=== PATIENT | female | born 1995 | race Caucasian/White ===

== ENCOUNTER 2017-01-06 02:01 | Emergency (ER) | payer OTHER ==
[~2017-01-06] VITALS: Ht 162.6 cm; Wt 123.8 kg
--- NOTE | 2017-01-06 02:07 | NUR ---
Patient ambulated to bed 06.
[2017-01-06 02:10] VITALS: BP 111/74
--- NOTE | 2017-01-06 02:13 | NUR ---
Dr. Mahmood evaluating patient at bedside.
--- NOTE | 2017-01-06 02:19 | NUR ---
21Y/F PATIENT PRESENTS TO ED WITH C/O LT. EAR PAIN X 1 DAY . PT STATES SHE HAS FLU LIKE SYMPTOMS, THIS MORNING HAD N/V THEN LT. EAR PAIN; SKIN IS PINK/WARM/DRY; AAOX4 WITH EVEN AND STEADY GAIT; LUNGS CLEAR BL; HR EVEN AND REGULAR; PT DENIES ANY FEVER, CP, SOB, OR COUGH AT THIS TIME; PATIENT STATES PAIN OF 10/10 AT THIS TIME; VSS; PATIENT POSITIONED FOR COMFORT; HOB ELEVATED; BEDRAILS UP X2; BED DOWN. ER MD MADE AWARE OF PT STATUS.
[2017-01-06 02:30] VITALS: BP 111/74
--- NOTE | 2017-01-06 02:30 | NUR ---
Patient discharged with v/s stable. Written and verbal after care instructions given and explained. Patient alert, oriented and verbalized understanding of instructions. Ambulatory with steady gait. All questions addressed prior to discharge. ID band removed. Patient advised to follow up with PMD. Rx of AMOXICILLIN 250 MG, MOTRIN 600 MG given. Patient educated on indication of medication including possible reaction and side effects. Opportunity to ask questions provided and answered.
== END 2017-01-06 02:30 | disposition home or self-care (01) ==
LOC: MED 02:01
DX: H66.92 Otitis media, unspecified, left ear (principal); J06.9 Acute upper respiratory infection, unspecified; Z91.040 Latex allergy status; J45.909 Unspecified asthma, uncomplicated; Z91.018 Allergy to other foods

== ENCOUNTER 2017-08-24 23:27 | Emergency (ER) | payer MEDICAID, OTHER ==
[~2017-08-24] VITALS: Ht 162.6 cm; Wt 125.6 kg
[2017-08-24 23:34] VITALS: BP 137/79
[2017-08-24] MEDS ORDERED: HYDR-2912 PO (23:40)
--- NOTE | 2017-08-24 23:59 | NUR ---
PT TAKEN TO BED 8.
--- NOTE | 2017-08-25 00:05 | NUR ---
PATIENT PRESENTS TO ED WITH C/O TWIN PAIN AND SWOLLEN X2 DAYS, TOOK TYLENOL, HYDROCOTISONE CREAM, AND NEOSPORIN CREAM AT HOME, NOT WORKING, 38 WEEKS . DENIES N/V/D; SKIN IS PINK/WARM/DRY; AAOX4 WITH EVEN AND STEADY GAIT; LUNGS CLEAR BL; HR EVEN AND REGULAR; PT DENIES ANY FEVER, CP, SOB, OR COUGH AT THIS TIME; PATIENT STATES PAIN OF 5/10 AT THIS TIME; VSS; PATIENT POSITIONED FOR COMFORT; HOB ELEVATED; BEDRAILS UP X2; BED DOWN. ER MD MADE AWARE OF PT STATUS.
--- NOTE | 2017-08-25 00:23 | NUR ---
Patient being evaluated by physician at bedside.
[2017-08-25] MEDS ORDERED: LIDOCAINE/EPI 2% 1:100000 20 ML VIAL INJ ONE (00:30)
--- NOTE | 2017-08-25 00:35 | NUR ---
DR. WHITE STARTED I&D PROCEDURE AT BEDSIDE, ELVIA TATE AT BEDSIDE.
--- NOTE | 2017-08-25 00:43 | NUR ---
FEMALE CHAPERONED FOR DR. WHITE DURING PELVIC EXAM AND I&D PROCEDURE
[2017-08-25] MEDS ORDERED: NACL 0.9% 1,000 ML IV ONE (00:45)
[2017-08-25] MEDS ORDERED: cefTRIAXone 2,000 MG in DEXTROSE 5% 100 ML IV ONE (00:45)
[2017-08-25] MEDS ORDERED: KETOROLAC 30 MG/ML VIAL IVP ONE (00:45)
[2017-08-25] MEDS ORDERED: cefTRIAXone 2,000 MG VIAL ONE (01:10)
--- NOTE | 2017-08-25 02:10 | NUR ---
Patient discharged with v/s stable. Written and verbal after care instructions given and explained. Patient alert, oriented and verbalized understanding of instructions. Ambulatory with steady gait. All questions addressed prior to discharge. ID band removed. Patient advised to follow up with PMD. Rx of NAPROSYN 500 MG, KEFLEX 500 MG given. Patient educated on indication of medication including possible reaction and side effects. Opportunity to ask questions provided and answered. D/C BY DR. WHITE
[2017-08-25 02:11] VITALS: BP 120/68
== END 2017-08-25 01:18 | disposition home or self-care (01) ==
LOC: MED 23:27
DX: O23.593 Infection of other part of genital tract in pregnancy, third trimester (principal); N76.4 Abscess of vulva; R03.0 Elevated blood-pressure reading, without diagnosis of hypertension; J45.909 Unspecified asthma, uncomplicated; Z3A.28 28 weeks gestation of pregnancy; Z91.040 Latex allergy status; Z88.8 Allergy status to other drugs, medicaments and biological substances; Z79.899 Other long term (current) drug therapy
CPT/HCPCS: 56405; 96365; 96375; 99284; J0696; J1885; J2001; J7030

== ENCOUNTER 2018-11-19 10:41 | Emergency (ER) | payer MEDICAID ==
[~2018-11-19] VITALS: Ht 162.6 cm; Wt 113.4 kg
[~2018-11-19 10:41] MED LIST: HYDR-1093 PO
--- NOTE | 2018-11-19 10:50 | NUR ---
PT AMBULATED TO ER BED 06
[2018-11-19 10:57] VITALS: BP 115/77
--- NOTE | 2018-11-19 11:03 | NUR ---
Note undone in EDM - 11/19/18 at 1107 by MEDFL 22 MONTH/ F BIB MOTHER C/O N/V/D X 2 DAYS. PT SKIN IS INTACT, PINK/WARM/DRY; AAO, APPROPRIATE FOR AGE, PERRL; LUNGS CLEAR BL, BREATHING UNLABORED; HR EVEN AND REGULAR, BL PERIPHERAL PULSES PRESENT; BS ACTIVE X4, NO TENDERNESS TO PALPATION, PARENT DENIES ANY FEVER, CP, SOB, OR COUGH AT THIS TIME; 0/10 PAIN AT THIS TIME; VSS; PATIENT POSITIONED FOR COMFORT; HOB ELEVATED; BEDRAILS UP X1; BED DOWN. HX--GERD, IBS, BIPOLAR, MAJOR DEPRESSION, ASTHMA RX---LAMICTAL, WELBUTRIN, ALBUTEROL
--- NOTE | 2018-11-19 11:03 | NUR ---
22 Y/ F BIB MOTHER C/O N/V/D X 2 DAYS. PT SKIN IS INTACT, PINK/WARM/DRY; AAOX4, PERRL, WITH EVEN AND STEADY GAIT; LUNGS CLEAR BL, BREATHING UNLABORED; HR EVEN AND REGULAR, BL PERIPHERAL PULSES PRESENT; BS ACTIVE X4, NO TENDERNESS TO PALPATION, NO HEPATOSPLENOMEGALLY PALPATED, RESONANT TO PERCUSSION; PT DENIES ANY FEVER, CP, SOB, OR COUGH AT THIS TIME; PT STATES 0/10 PAIN AT THIS TIME; VSS; PATIENT POSITIONED FOR COMFORT; HOB ELEVATED; BEDRAILS UP X1; BED DOWN. HX; GERD, IBS, BIPOLAR, MAJOR DEPRESSION, ASTHMA RX; LAMICTAL, WELBUTRIN, ALBUTEROL
[2018-11-19] MEDS ORDERED: FAMOTIDINE 20 MG TAB PO ONE (11:30)
[2018-11-19] MEDS ORDERED: ONDANSETRON 4 MG ODT PO ONE (11:30)
[2018-11-19] MEDS ORDERED: METOCLOPRAMIDE 10 MG TAB PO ONE (11:30)
--- NOTE | 2018-11-19 11:30 | NUR ---
Patient being evaluated by physician at bedside.
[2018-11-19] MEDS ORDERED: LORazepam 2 MG/ML VIAL IM ONE (12:20)
--- NOTE | 2018-11-19 13:02 | NUR ---
Patient discharged with v/s stable. Written and verbal after care instructions given and explained. Patient alert, oriented and verbalized understanding of instructions. Ambulatory with steady gait. All questions addressed prior to discharge. ID band removed. Patient advised to follow up with PMD. Rx of reglan/bentyl given. Patient educated on indication of medication including possible reaction and side effects. Opportunity to ask questions provided and answered.
[2018-11-19 13:07] VITALS: BP 137/92
== END 2018-11-19 13:06 | disposition home or self-care (01) ==
LOC: MED 10:41
DX: E66.01 Morbid (severe) obesity due to excess calories (principal); Z68.41 Body mass index [BMI] 40.0-44.9, adult; R11.2 Nausea with vomiting, unspecified; K21.9 Gastro-esophageal reflux disease without esophagitis; J45.909 Unspecified asthma, uncomplicated; F31.9 Bipolar disorder, unspecified; Z88.6 Allergy status to analgesic agent; Z91.040 Latex allergy status; Z79.899 Other long term (current) drug therapy
CPT/HCPCS: 96372; 99284; J2060; J8597; Q0162

== ENCOUNTER 2018-12-29 13:56 | Emergency (ER) | payer MEDICAID ==
[~2018-12-29] VITALS: Ht 162.6 cm; Wt 124.7 kg
[2018-12-29 14:03] VITALS: BP 119/74
--- NOTE | 2018-12-29 14:05 | NUR ---
PT IS A 23 Y/O FEMALE WHO PRESENTS TO THE ED C/O L EAR PAIN. PT STATES THAT IT STARTED YESTERDAY. PT REPORTS 8/10 ACHING L EAR PAIN THAT RADIATES TO THE NECK. PT DENIES CP, SOB, N/V/D. PT AWAKE AND ALERT, RR EVEN/UNLABORED. PT REPOSITIONED FOR COMFORT, BED IN LOWEST POSITION. ER MD DR. AUGUSTIN NOTIFIED. WILL CONTINUE TO MONITOR. HX--BIPOLAR, DEPRESSION, GERD, ASTHMA, IBS RX---WELLBUTRIN, LAMICTAL, LITHIUM, ALBUTEROL, PEPCID
--- NOTE | 2018-12-29 14:09 | NUR ---
Patient being evaluated by physician at bedside.
[2018-12-29] MEDS ORDERED: CLINDAMYCIN 600 MG/4 ML VIAL IM ONE (14:15)
[2018-12-29] MEDS ORDERED: DEXAMETHASONE 10 MG/ML VIAL IM ONE (14:15)
--- NOTE | 2018-12-29 15:15 | NUR ---
PT MOVED FROM BED 7 TO RU
[2018-12-29 15:48] VITALS: BP 119/74
--- NOTE | 2018-12-29 15:48 | NUR ---
Patient discharged with v/s stable. Written and verbal after care instructions given and explained. Patient alert, oriented and verbalized understanding of instructions. Ambulatory with steady gait. All questions addressed prior to discharge. ID band removed. Patient advised to follow up with PMD. Rx of ANTIVERT given. Patient educated on indication of medication including possible reaction and side effects. Opportunity to ask questions provided and answered.
== END 2018-12-29 15:48 | disposition home or self-care (01) ==
LOC: MED 13:56
DX: H66.92 Otitis media, unspecified, left ear (principal); J45.909 Unspecified asthma, uncomplicated; K21.9 Gastro-esophageal reflux disease without esophagitis; Z91.040 Latex allergy status; Z88.8 Allergy status to other drugs, medicaments and biological substances; Z79.899 Other long term (current) drug therapy
CPT/HCPCS: 36415; 87804; 96372; 99283; J1100; J3490

== ENCOUNTER 2020-02-04 18:29 | Emergency (ER) | payer OTHER ==
[~2020-02-04] VITALS: Ht 162.6 cm; Wt 126.1 kg
[2020-02-04 18:46] VITALS: BP 145/97
--- NOTE | 2020-02-04 19:16 | NUR ---
24 YO FEMALE CO GENERAL COLD SYMPTOMS AND STOMACH PAIN. PT HAS LOOSE STOOL BUT DENIES ANY N/V. RUNNY NOSE AND COUGH OFF AND ON FOR 1M. PT IS TAKING WELBUTRIN AND LATUDA.
--- NOTE | 2020-02-04 20:17 | NUR ---
PT SITTING IN BED. NO CHANGE IN CODITION
--- NOTE | 2020-02-04 21:46 | NUR ---
FLU NEG FOR A & B
[2020-02-04 21:53] VITALS: BP 131/86
--- NOTE | 2020-02-04 21:53 | NUR ---
Patient discharged with v/s stable. Written and verbal after care instructions given and explained. Patient alert, oriented and verbalized understanding of instructions. Ambulatory with steady gait. All questions addressed prior to discharge. ID band removed. Patient advised to follow up with PMD. Rx of Codeine and Tessalon Perles given. Patient educated on indication of medication including possible reaction and side effects. Opportunity to ask questions provided and answered.
== END 2020-02-04 21:53 | disposition home or self-care (01) ==
LOC: MED 18:29
DX: B34.9 Viral infection, unspecified (principal); R19.7 Diarrhea, unspecified; J45.909 Unspecified asthma, uncomplicated; K21.9 Gastro-esophageal reflux disease without esophagitis; F32.9 Major depressive disorder, single episode, unspecified; Z98.890 Other specified postprocedural states; Z79.899 Other long term (current) drug therapy; Z88.8 Allergy status to other drugs, medicaments and biological substances; Z91.040 Latex allergy status
CPT/HCPCS: 71045; 87804; 99284

== ENCOUNTER 2021-03-17 18:23 | Emergency (ER) | payer OTHER ==
[~2021-03-17] VITALS: Ht 162.6 cm; Wt 127.0 kg
[2021-03-17 18:27] VITALS: BP 142/82
--- NOTE | 2021-03-17 18:49 | NUR ---
PT AMBULATED TO RESTROOM TO PROVIDE URINE SAMPLE WITH EVEN STEADY GAIT
--- NOTE | 2021-03-17 18:58 | NUR ---
DR VIEYRA AT BEDSIDE EVALUATING PT
--- NOTE | 2021-03-17 19:15 | NUR ---
DR NICE ADV THAT PT WILL BE PLACED ON 5150 HOLD
--- NOTE | 2021-03-17 19:20 | NUR ---
PT PLACED ON A 5150 HOLD ON 03/17/21 AT 1920 FOR DANGER TO SELF.
--- NOTE | 2021-03-17 19:30 | NUR ---
PT CAME IN A WI TO THE ED FOR SUCIDAL THOUGHTS AND IDEATION. PT IS CALM, COOPERATIVE, AND RELAXED. PT ADMITS TO PREVIOUS SUICIDAL THOUGHTS THAT WERE WELL PLANNED. PT HAS THOUGHTS ABOUT KILLING HERSELF BY OD ON PILLS AND CUTTING HER WRIST. PT HAS BEEN HAVING SOME HARD TIMES IN LIFE D/T HAVING HER [employer] INSURANCE REVOKED SINCE LAST YEAR. PT SAYS SINCE HER INSURANCES WAS REVOKED SHE HASNT BEEN ABLE TO GET PROPER TREATMENT SUCH GETTING REFILLS ON HER MEDS AND SEEING A THERAPIST. PT DOES HAVE A STRONG SUPPORT SYSTEM TO HELP HER COPE WITH HER DEPRESSION AND SUICIDE. NO OBVIOUS INJURIES NOTED. PT IS A&OX4. HAS A STEADY GAIT. PTS RX IS WELLBUTRIN, LATUDA, AND ZOLOFT. BELONGING LISTS COMPLETES AND REMOVED FROM ROOM AND TAKEN BY SECURITY. BED LOCKED IN PLACE AND AT THE LOWEST POSITION. ALL SHARPS AND ITEMS ARE REMOVED FROM THE ROOM FOR PTS SAFETY. ALLERIGES: BENADRYL, LATEX. PMH: ASTHMA, IBS, GERD, ARTHRITIS, DEPRESSION, MDD, BIPOLAR, HALLUCINATION, PHYCHOSIS.
[2021-03-17 19:35] LABS: BASOPHILS # (AUTO) 0.1 K/uL (0.00-0.22); BASOPHILS % (AUTO) 0.6 % (0.0-2.0); EOSINOPHILS # (AUTO) 0.4 K/uL (0-0.4); EOSINOPHILS % (AUTO) 3.3 % (0.0-4.0); HEMATOCRIT 38.4 % (36-48); HEMOGLOBIN 12.1 g/dL (12.0-16.0); LYMPHOCYTES # (AUTO) 3.8 K/uL (2.5-16.5); LYMPHOCYTES % (AUTO) 31.8 % (20.5-51.1); MEAN CORPUSCULAR HEMOGLOBIN 23 pg (27-31); MEAN CORPUSCULAR HGB CONC 31 g/dL (33-37); MEAN CORPUSCULAR VOLUME 73.6 fL (80-94); MONOCYTES # (AUTO) 0.5 K/uL (0.8-1.0); MONOCYTES % (AUTO) 4.4 % (1.7-9.3); NEUTROPHILS # (AUTO) 7.2 K/uL (1.8-7.7); NEUTROPHILS % (AUTO) 59.9 % (42.2-75.2); PLATELET COUNT (AUTO) 357 K/uL (140-450); RED BLOOD CELL COUNT(AUTO) 5.22 MIL/uL (4.20-5.40); RED CELL DISTRIBUTION WIDTH 16.6 % (11.6-13.7)
[2021-03-17] MEDS ORDERED: IBUPROFEN 600 MG TAB ONE (19:35)
--- NOTE | 2021-03-17 19:45 | NUR ---
PT BELONGINGS LIST PLACED IN CHART AND P/U BY SECURITY
[2021-03-17 19:50] LABS: ALBUMIN 3.9 g/dL (3.4-5.0); ANION GAP 13.5 (8-16); ASPARTATE AMINOTRANSFERASE 13 U/L (15-37); CARBON DIOXIDE 26.1 mmol/L (21-32); CHLORIDE 103 mmol/L (98-107); CREATININE 0.9 mg/dL (0.6-1.3); GFR ARICAN-AMERICAN 97 mL/min (>90); GLUCOSE 121 mg/dL (74-106); POTASSIUM 3.6 mmol/L (3.5-5.1); SODIUM SERUM 139 mmol/L (136-145); TOTAL BILIRUBIN 0.3 mg/dL (0.0-1.0); UREA NITROGEN, BLOOD 11 mg/dL (7-18)
[2021-03-17 20:01] LABS: ACETAMINOPHEN < 0.5 ug/ml (10-30); SALICYLATE < 2.8 mg/dL (2.8-20.0)
--- NOTE | 2021-03-17 20:22 | NUR ---
Dr. Hicks examining patient.
[2021-03-17] MEDS ORDERED: LORazepam 1 MG TAB PO ONE (21:15)
[2021-03-17 21:32] LABS: APPEARANCE,URINE CLEAR (CLEAR); BILIRUBIN,URINE NEGATIVE (NEGATIVE); BLOOD, URINE 3+ (NEGATIVE); COLOR,URINE RED (YELLOW); LEUKOCYTE ESTERASE ,URINE TRACE (NEGATIVE); NITRITE, URINE NEGATIVE (NEGATIVE); PH,URINE 6.5 (5.0-9.0); UGLUCOSE NEGATIVE (NEGATIVE)
[2021-03-17 21:37] LABS: BARBITURATE, URINE NEGATIVE ng/ml (NEG <=200); BENZODIAZEPINE, URINE NEGATIVE ng/mL (NEG <=200); CANNABINOID, URINE NEGATIVE ng/mL (NEG <=50); COCAINE, URINE NEGATIVE ng/mL (NEG <=300); OPIATE, URINE NEGATIVE ng/mL (NEG <=2000); PHENCYCLIDINE SCREEN,URINE NEGATIVE ng/mL (NEG <=25)
[2021-03-17 21:39] LABS: RBC,URINE 50-80 /HPF (0-5)
[2021-03-17 21:40] LABS: WBC,URINE 0-5 /HPF (0-5)
--- NOTE | 2021-03-18 00:18 | NUR ---
pt sleeping with equal chest rise and fall. no distress noted.
--- NOTE | 2021-03-18 02:17 | NUR ---
Packet fax to [facility] for review
--- NOTE | 2021-03-18 04:19 | NUR ---
Patient has been accepted at [facility] [phone] for report Jozef/RUBIN Patient to be tranferred after 07:00 am Gave info to Elisa
--- NOTE | 2021-03-18 07:11 | NUR ---
attempted to give report to [facility]. Was told to call back after 7:45.
--- NOTE | 2021-03-18 07:15 | NUR ---
REPORT RECIEVED FROM [facility] SEGAL. TRANSFER OF CARE AT THIS TIME.
--- NOTE | 2021-03-18 07:49 | NUR ---
REPORT GIVEN TO WING AT [facility]. ALL QUESTIONS ANSWERED.
--- NOTE | 2021-03-18 08:01 | NUR ---
SPOKE WITH , CATARINA, WITH PATIENT PERMISSION. UPDATES GIVEN. ALL QUESTIONS ANSWERED.
--- NOTE | 2021-03-18 08:16 | NUR ---
BREAKFAST TRAY PROVIDED TO PT
[2021-03-18 08:25] VITALS: BP 132/72
--- NOTE | 2021-03-18 08:25 | NUR ---
Patient to be transferred to [facility]. Is being transferred due to IN PATIENT PSYCH. Receiving facility has accepting physician and available space. ER physician has signed transfer form. Patient or responsible alliance party has agreed to transfer and signed form. Patient belongings inventoried and will be sent with patient. Copy of nursing notes, lab reports, EKG, Physicians Orders and X-rays to be sent with patient. Report called to ZAID DIMAS at receiving facility. ambulance IS EN ROUTE for transfer.
== END 2021-03-18 08:25 ==
LOC: MED 18:23
DX: R45.851 Suicidal ideations (principal); J45.909 Unspecified asthma, uncomplicated; K21.9 Gastro-esophageal reflux disease without esophagitis; Z88.0 Allergy status to penicillin; Z91.040 Latex allergy status; Z20.822 Contact with and (suspected) exposure to COVID-19
CPT/HCPCS: 36415; 80053; 80305; 81001; 81025; 85025; 87426; 93005; 99285; G0480; G0482; U0003

== ENCOUNTER 2021-12-11 19:06 | Emergency (ER) | payer OTHER ==
[~2021-12-11] VITALS: Ht 162.6 cm; Wt 129.3 kg
[2021-12-11 19:27] VITALS: BP 149/105
--- NOTE | 2021-12-11 21:45 | NUR ---
S/W ARIS ADMIT LOAD OUT WORKER WHO STATED PT NO LONGER WISHES TO BE SEEN. PATIENT LEFT WITHOUT BEING SEEN BY DR. FLORENTINO. NO FURTHER CARE PROVIDED FOR PATIENT.
== END 2021-12-11 21:45 | disposition left against medical advice (07) ==
LOC: MED 19:06
DX: S09.90XA Unspecified injury of head, initial encounter (principal); Z53.21 Procedure and treatment not carried out due to patient leaving prior to being seen by health care provider; W10.9XXA Fall (on) (from) unspecified stairs and steps, initial encounter; Y93.89 Activity, other specified; Y92.89 Other specified places as the place of occurrence of the external cause; Y99.8 Other external cause status

== ENCOUNTER 2022-01-24 12:33 | Emergency (ER) | payer OTHER ==
[~2022-01-24] VITALS: Ht 162.6 cm; Wt 131.5 kg
[2022-01-24 12:39] VITALS: BP 138/78
[2022-01-24 14:00] LABS: BASOPHILS # (AUTO) 0.1 K/uL (0.00-0.22); BASOPHILS % (AUTO) 0.7 % (0.0-2.0); EOSINOPHILS # (AUTO) 0.2 K/uL (0-0.4); EOSINOPHILS % (AUTO) 2.2 % (0.0-4.0); HEMATOCRIT 38.7 % (36-48); LYMPHOCYTES # (AUTO) 2.7 K/uL (2.5-16.5); LYMPHOCYTES % (AUTO) 29.1 % (20.5-51.1); MEAN CORPUSCULAR HEMOGLOBIN 23 pg (27-31); MEAN CORPUSCULAR HGB CONC 31 g/dL (33-37); MONOCYTES # (AUTO) 0.6 K/uL (0.8-1.0); MONOCYTES % (AUTO) 6.8 % (1.7-9.3); NEUTROPHILS # (AUTO) 5.7 K/uL (1.8-7.7); NEUTROPHILS % (AUTO) 61.2 % (42.2-75.2); PLATELET COUNT (AUTO) 334 K/uL (140-450); WHITE BLOOD COUNT (AUTO) 9.3 K/uL (4.8-10.8)
[2022-01-24 14:36] LABS: ALBUMIN 3.8 g/dL (3.4-5.0); ANION GAP 12.7 (8-16); CARBON DIOXIDE 27.1 mmol/L (21-32); CREATININE 0.8 mg/dL (0.6-1.3); POTASSIUM 3.8 mmol/L (3.5-5.1); TOTAL BILIRUBIN 0.2 mg/dL (0.0-1.0)
[2022-01-24 14:48] LABS: PROTHROMBIN TIME 10.3 secs (10.8-13.4)
--- NOTE | 2022-01-24 14:50 | NUR ---
Patient discharged with v/s stable. Written and verbal after care instructions given and explained. Patient verbalized understanding. Ambulatory with steady gait. All questions addressed prior to discharge. Advised to follow up with PMD.
== END 2022-01-24 14:12 | disposition home or self-care (01) ==
LOC: MED 12:33
DX: K92.1 Melena (principal); J45.909 Unspecified asthma, uncomplicated; K21.9 Gastro-esophageal reflux disease without esophagitis; F31.9 Bipolar disorder, unspecified; F41.9 Anxiety disorder, unspecified; Z98.890 Other specified postprocedural states; Z79.899 Other long term (current) drug therapy; Z88.8 Allergy status to other drugs, medicaments and biological substances; Z91.040 Latex allergy status
CPT/HCPCS: 36415; 80053; 81002; 81025; 85025; 85610; 85730; 86886; 86900; 86901; 99283